=== PATIENT | female | born 1950 | race Caucasian/White ===

== ENCOUNTER → 2018-05-04 | Outpatient (CLI) | payer OTHER, BC ==
[~2018-05-04] VITALS: Ht 160 cm; Wt 63.5 kg
[~2018-05-04] MED LIST: CALCIUM500 MG PO; CENTRUM SILVER1 EAC4 PO; FISH OIL 1,001000 M2 PO; HAIR, SKIN & N1 EAC3 PO; MAGOX 400400 MG PO; SIMVASTATIN40 MG PO; TURMERIC500 M2 PO; VITAMIN D2000 UNIT PO
--- NOTE | ~2018-05-04 | P ---
[facility] [place] [address] PROCEDURE REPORT Name: INDIA BURR Room #: [facility].#: [id number] Admission: 05/04/18 Attend Phys: Rodger Stein MD Discharge: Date of : 50 Report #: [id number] THIS REPORT FOR: //name// CC: Rodger Pham BRIEF HISTORY: The patient is a 67-year-old woman who is seen for high risk screening colonoscopy due to a personal history of colon polyps. Also her mother had colon cancer, but was in her 80s at the time of diagnosis. PREOPERATIVE DIAGNOSIS: High risk screening colonoscopy due to personal history of colon polyps. POSTOPERATIVE DIAGNOSES: Moderate left-sided diverticulosis coli. MEDICATIONS: Deep sedation with propofol per anesthesia. SPECIMEN: None. ESTIMATED BLOOD LOSS: None. PROCEDURE: Colonoscopy to the cecum and terminal ileum. FINDINGS: Prior to propofol sedation, procedure of colonoscopy discussed with the patient as well potential risks, benefits and complications. She indicates she understands and desires to proceed. With the patient in the left lateral decubitus position, digital examination was completed, which revealed no abnormalities. Subsequently, the Olympus video colonoscope was introduced in the rectum, advanced under direct vision to the cecum. Done with minimal difficulty. The cecum was identified by the ileocecal valve and the appendiceal orifice. I was able to visualize the distal segment of the terminal ileum, which was inspected and noted to be unremarkable. At that point, the scope was slowly withdrawn and careful circumferential views obtained. As we withdrew the scope, the prep was good. The mucosa was within normal limits, normal vascular pattern and normal light reflex. As we withdrew the scope through the entire colon, no neoplastic lesions were seen on this examination today. The mucosa was within normal limits. She was noted to have moderately severe diverticular disease of the left colon. Surgical anastomosis was unremarkable. She has had previous segmental resection for diverticular disease. The scope was withdrawn in the rectum and no abnormalities were seen. The scope was withdrawn. The patient tolerated the procedure well. CONDITION OF THE PATIENT UPON DISCHARGE: Following procedure, the patient drowsy, aroused, conversant and will be discharged home when fully ambulatory. [facility] [address] [place] [address] PROCEDURE REPORT Name: INDIA BURR Room #: [facility]#: [id number] Admission: 05/04/18 Attend Phys: Rodger Stein MD Discharge: Date of : 50 Report #: [id number] INSTRUCTIONS TO THE PATIENT AND FAMILY AT THE TIME OF DISCHARGE: No neoplastic lesions seen on today's exam. Suggest high fiber diet due her diverticular disease. Her mother was an advanced age at the time of diagnosis of colon cancer. Therefore, I think it would be reasonable for the patient to return in 10 years for a followup colonoscopy. Last colonoscopy was about 5 years ago. Withdrawal time from the cecum was between 10 or 11 minutes. <ELECTRONICALLY SIGNED> By: Rodger Stein MD 05/04/18 [id number] Rodger Stein MD /nt
== END | disposition short-term general hospital (02) ==
LOC: GI
DX: Z12.11 Encounter for screening for malignant neoplasm of colon (principal); K57.30 Diverticulosis of large intestine without perforation or abscess without bleeding; C44.40 Unspecified malignant neoplasm of skin of scalp and neck; E78.5 Hyperlipidemia, unspecified; Z88.8 Allergy status to other drugs, medicaments and biological substances; Z79.899 Other long term (current) drug therapy; Z86.010 Personal history of colon polyps; Z80.0 Family history of malignant neoplasm of digestive organs; Z98.890 Other specified postprocedural states; Z98.0 Intestinal bypass and anastomosis status
CPT/HCPCS: 62110; 62900